=== PATIENT | female | born 1995 | race Caucasian/White ===

== ENCOUNTER 2022-01-19 11:55 | Emergency (ER) | payer BC ==
[~2022-01-19] VITALS: Ht 165.1 cm; Wt 50.8 kg
[2022-01-19] MEDS ORDERED: AMOX-CLAV 875-1 EACH PO (12:18)
== END 2022-01-19 13:20 | disposition home or self-care (01) ==
LOC: ED 11:55
DX: S61.250A Open bite of right index finger without damage to nail, initial encounter (principal); W55.01XA Bitten by cat, initial encounter; Y93.89 Activity, other specified; Y92.89 Other specified places as the place of occurrence of the external cause; Y99.8 Other external cause status

== ENCOUNTER 2022-01-22 13:03 | Emergency (ER) | payer BC ==
[~2022-01-22] VITALS: Ht 165.1 cm; Wt 50.8 kg
[~2022-01-22 13:03] MED LIST: AMOX-CLAV 875-1 EACH PO
== END 2022-01-22 13:42 | disposition home or self-care (01) ==
LOC: ED 13:03
DX: Z23 Encounter for immunization (principal)

== ENCOUNTER 2022-01-29 12:13 | Emergency (ER) | payer BC | END 2022-01-29 17:36 | disposition left against medical advice (07) | LOC: ED 12:13 | DX: Z53.21 Procedure and treatment not carried out due to patient leaving prior to being seen by health care provider (principal) ==

== ENCOUNTER 2022-03-03 08:55 | Emergency (ER) | payer BC ==
[~2022-03-03] VITALS: Ht 165.1 cm; Wt 49.9 kg
== END 2022-03-03 09:49 | disposition home or self-care (01) ==
LOC: ED 08:55
DX: Z32.01 Encounter for pregnancy test, result positive (principal)

== ENCOUNTER 2023-01-27 10:33 | Emergency (ER) | payer SELFPAY ==
[~2023-01-27] VITALS: Ht 165.1 cm; Wt 54.0 kg
[2023-01-27 11:17] LABS: BASO % 0.5 % (0.0-1.0); EOS # 0.1 10*3/uL (0.0-0.4); EOS % 0.8 % (1.0-4.0); HEMATOCRIT 38.7 % (37.0-47.0); LYMPH # 1.6 10*3/uL (1.3-4.4); LYMPH % 25.6 % (27.0-41.0); MEAN CELL VOLUME 87.2 fl (81.0-99.0); MEAN CORPUSCULAR HGB 29.5 pg (27.0-31.0); MEAN CORPUSCULAR HGB CONC 33.9 g/dl (33.0-37.0); MEAN PLATELET VOLUME 10.2 fl (9.6-12.3); MONO # 0.3 10*3/uL (0.1-1.0); MONO % 5.5 % (3.0-9.0); NEUT # 4.1 10*3/uL (2.3-7.9); NEUT % 67.4 % (47.0-73.0); PLATELET COUNT AUTOMATED 230 10*3/uL (130-400); RED BLOOD COUNT 4.44 10*6/uL (4.10-5.10); RED CELL DISTRI WIDTH 14.6 % (0-14.5); WHITE BLOOD COUNT 6.1 10*3/uL (4.8-10.8)
[2023-01-27 11:32] LABS: INTERNATIONAL NORM RATIO 1.2 (2.0-3.5)
[2023-01-27 11:38] LABS: ALKALINE PHOSPHATASE 48 U/L (46-116); BUN 6 mg/dl (9-23); CHLORIDE 107 mmol/L (98-107); POTASSIUM 3.5 mmol/L (3.4-5.1); SGPT/ALT 9 U/L (10-49); TOTAL PROTEIN 7.6 gm/dL (6.0-8.0)
[2023-01-27 12:33] LABS: BILIRUBIN Negative (Negative); BLOOD 3+ (Negative); CLARITY Clear (Clear); COLOR Yellow (Yellow); GLUCOSE Negative (Negative); KETONE Negative (Negative); LEUKO ESTERASE 1+ (Negative); NITRITE Negative (Negative); SPECIFIC GRAVITY 1.015 (1.001-1.030)
[2023-01-27 12:52] LABS: BACTERIA 3+; RBC 21-30 rbc/hpf (0-2); WBC 16-20 wbc/hpf (0-5)
[2023-01-27] MEDS ORDERED: CEPHALEXIN500 M1 PO (13:26)
== END 2023-01-27 13:37 | disposition home or self-care (01) ==
LOC: ED 10:33
PROVIDERS: Family Medicine; Nurse Practitioner
DX: O46.91 Antepartum hemorrhage, unspecified, first trimester (principal); O23.41 Unspecified infection of urinary tract in pregnancy, first trimester; N39.0 Urinary tract infection, site not specified; Z3A.01 Less than 8 weeks gestation of pregnancy

== ENCOUNTER 2023-10-02 16:22 | Emergency (ER) | payer SELFPAY ==
[~2023-10-02] VITALS: Ht 165.1 cm; Wt 52.2 kg
[~2023-10-02 16:22] MED LIST changes: +CEPHALEXIN500 M1 PO
[2023-10-02 17:19] LABS: BASO % 0.3 % (0.0-1.0); EOS # 0.1 10*3/uL (0.0-0.4); EOS % 1.5 % (1.0-4.0); HEMATOCRIT 36.5 % (37.0-47.0); LYMPH # 1.1 10*3/uL (1.3-4.4); LYMPH % 19.1 % (27.0-41.0); MEAN CELL VOLUME 91.7 fl (81.0-99.0); MEAN CORPUSCULAR HGB 30.7 pg (27.0-31.0); MEAN CORPUSCULAR HGB CONC 33.4 g/dl (33.0-37.0); MEAN PLATELET VOLUME 9.9 fl (9.6-12.3); MONO # 0.6 10*3/uL (0.1-1.0); MONO % 10.1 % (3.0-9.0); NEUT # 4.1 10*3/uL (2.3-7.9); NEUT % 68.7 % (47.0-73.0); PLATELET COUNT AUTOMATED 191 10*3/uL (130-400); RED BLOOD COUNT 3.98 10*6/uL (4.10-5.10); RED CELL DISTRI WIDTH 13.5 % (0-14.5)
[2023-10-02 17:53] LABS: ALKALINE PHOSPHATASE 56 U/L (46-116); CHLORIDE 105 mmol/L (98-107); POTASSIUM 3.4 mmol/L (3.4-5.1); SGPT/ALT 10 U/L (5-49); TOTAL PROTEIN 7.2 gm/dL (6.0-8.0)
[2023-10-02 17:57] LABS: BUN < 5 mg/dl (9-23)
[2023-10-02 18:07] LABS: BILIRUBIN Negative (Negative); BLOOD 3+ (Negative); CLARITY Clear (Clear); COLOR Yellow (Yellow); GLUCOSE Negative (Negative); KETONE Negative (Negative); SPECIFIC GRAVITY 1.005 (1.001-1.030); UROBILINOGEN 0.2 E.U./dl (0.0-1.0)
[2023-10-02 18:08] LABS: LEUKO ESTERASE 2+ (Negative); NITRITE Negative (Negative)
== END 2023-10-02 19:03 | disposition home or self-care (01) ==
LOC: ED 16:22
PROVIDERS: Nurse Practitioner
DX: O46.8X1 Other antepartum hemorrhage, first trimester (principal); Z3A.08 8 weeks gestation of pregnancy